=== PATIENT | male | born 1945 | race Two or more races ===

== ENCOUNTER 2024-02-11 18:45 | Emergency (ER) | payer OTHER ==
[~2024-02-11] VITALS: Ht 167.6 cm; Wt 71.7 kg
[2024-02-11] MEDS ORDERED: AMLODIPINE BESYL5 MG PO (19:03)
[2024-02-11] MEDS ORDERED: LISINOPRIL-HCT1 EACH PO (19:03)
[2024-02-11 19:04] VITALS: BP 127/76; O2SAT 96
[2024-02-11] MEDS ORDERED: METOPROLOL SUCC25 MG PO (19:04)
[2024-02-11 19:36] LABS: HEMOGLOBIN 13.3 g/dL (13-16.00); MEAN CELL VOLUME 85.7 fL (80.0-100.00); MEAN CORPUSCULAR HEMOGLOBIN 27.7 pg (27.00-32.0); MEAN CORPUSCULAR HGB CONC 32.4 g/dl (32.0-36.0); PLATELET COUNT 166 K/uL (150-450); RED BLOOD COUNT 4.79 M/uL (4.00-6.00); RED CELL DISTRIBUTION WIDTH 14.6 % (11.5-14.5)
[2024-02-11 19:57] LABS: INR 1.09; PARTIAL THROMBOPLASTIN TIME 25.1 SECONDS (22.0-34.0); PROTHROMBIN TIME 11.8 SECONDS (9.0-11.5)
[2024-02-11 20:02] LABS: ALBUMIN 3.8 gm/dL (3.4-5.0); BILIRUBIN TOTAL 0.42 mg/dL (0.3-1.2); CALCIUM 9.5 mg/dL (8.5-10.1); CREATININE SERUM 1.59 mg/dL (0.70-1.30); GFR 42.21; POTASSIUM 4.01 mEq/L (3.5-5.1); TOTAL PROTEIN 7.8 gm/dL (6.4-8.2)
== END 2024-02-11 20:45 | disposition home or self-care (01) ==
LOC: ER 18:47
PROVIDERS: General Practice
DX: R07.89 Other chest pain (principal); I10 Essential (primary) hypertension